=== PATIENT | female | born 1940 | race Caucasian/White ===

== ENCOUNTER → 2023-08-22 09:14 | Outpatient (REF) | payer MEDICARE, OTHER, SELFPAY | LOC: WDC 09:14 | PROVIDERS: ATTENDING PHYSICIAN Nurse Practitioner Family | DX: Z13.820 Encounter for screening for osteoporosis (principal); Z12.31 Encounter for screening mammogram for malignant neoplasm of breast; M81.0 Age-related osteoporosis without current pathological fracture | CPT/HCPCS: 77063; 77067; 77080 ==

== ENCOUNTER → 2023-09-02 09:27 | Outpatient (REF) | payer MEDICARE, OTHER, SELFPAY | LOC: WDC 09:27 | PROVIDERS: ATTENDING PHYSICIAN Nurse Practitioner Family | DX: R92.8 Other abnormal and inconclusive findings on diagnostic imaging of breast (principal) | CPT/HCPCS: 76642 ==

== ENCOUNTER → 2023-09-07 10:02 | Outpatient (REF) | payer MEDICARE, OTHER, SELFPAY ==
--- NOTE | 2023-09-07 13:43 | OID.BR.INTR ---
[facility]igator - Initial
- -
Date of Contact: 09/07/23
Met with patient. Patient given written information on navigator services available at [facility]. Will follow up as needed per protocol.
== END ==
LOC: WDC 10:02
PROVIDERS: ATTENDING PHYSICIAN Nurse Practitioner Family
DX: N63.11 Unspecified lump in the right breast, upper outer quadrant (principal)
CPT/HCPCS: 88305; 19083; 77065; 88341; 88342; 88360; A4648

== ENCOUNTER 2023-10-07 05:57 | Day surgery (SDC) | payer MEDICARE, OTHER, SELFPAY ==
[2023-10-04 06:47] VITALS: BMI 32.3
[2023-10-07 07:01] VITALS: BP 134/75
[2023-10-07 07:11] VITALS: BMI 32.3
[2023-10-07] MEDS: NORMOSOL-R 1000 IV (07:17)
[2023-10-07] MEDS: TYLENOL 1000 MG PO (07:17)
[2023-10-07 09:22] VITALS: BP 107/64
[2023-10-07 09:30] VITALS: BP 99/59
[2023-10-07 09:45] VITALS: BP 98/60
[2023-10-07 10:00] VITALS: BP 116/78
== END 2023-10-07 10:20 | disposition home or self-care (01) ==
LOC: SDS 05:57
PROVIDERS: ATTENDING PHYSICIAN Surgery
DX: N60.91 Unspecified benign mammary dysplasia of right breast (principal); D24.1 Benign neoplasm of right breast; N60.11 Diffuse cystic mastopathy of right breast; N64.52 Nipple discharge
CPT/HCPCS: 19301; 88305; 88307; 88341; 88342; 88360; A4648; L8000